=== PATIENT | female | born 1980 | race Caucasian/White ===

== ENCOUNTER → 2016-08-07 | Day surgery (SDC) | payer MEDICARE, MEDICAID ==
[~2016-08-07] VITALS: Ht 157.5 cm; Wt 55.9 kg
[~2016-08-07] MED LIST: ALENDRONATE SOD70 MG PO; ATIVAN 0.5MG0.5 MG PO; CALCIUM 600 +1 EAC6 PO; CARTIA XT180 MG PO; CLARITIN10 MG PO; COLACE100 MG PO; COUMADIN ** IA5 MG PO; DELTASONE5 MG PO; DESYREL100 MG PO; FOLIC ACID1 MG PO; HYDROXYCHLOROQ200 MG PO; LITHIUM CARB300 MG PO; METHOTREXATE2.5 MG PO; PERCOCET 5-3251 EACH PO; PROTONIX40 MG PO; VITAMIN D1000 UNIT PO
== END ==
LOC: GPOC 06-04 10:00 → GEND 06-15 10:00
PROC: 0DB38ZX Excision of Lower Esophagus, Via Natural or Artificial Opening Endoscopic, Diagnostic (ICD-10-PCS; principal; 2016-08-07)
PROC: 0DB88ZX Excision of Small Intestine, Via Natural or Artificial Opening Endoscopic, Diagnostic (ICD-10-PCS; 2016-08-07)
PROC: 0DB68ZX Excision of Stomach, Via Natural or Artificial Opening Endoscopic, Diagnostic (ICD-10-PCS; 2016-08-07)
PROC: 0DJD8ZZ Inspection of Lower Intestinal Tract, Via Natural or Artificial Opening Endoscopic (ICD-10-PCS; 2016-08-07)
DX: K29.50 Unspecified chronic gastritis without bleeding (principal); K21.9 Gastro-esophageal reflux disease without esophagitis; Z86.718 Personal history of other venous thrombosis and embolism; Z79.899 Other long term (current) drug therapy; Z86.010 Personal history of colon polyps; Z79.891 Long term (current) use of opiate analgesic; Z79.01 Long term (current) use of anticoagulants; Z79.52 Long term (current) use of systemic steroids
CPT/HCPCS: J7030